=== PATIENT | male | born 1970 | race Caucasian/White ===

== ENCOUNTER 2016-05-13 17:40 | Inpatient (IN) | payer OTHER ==
[~2016-05-13] VITALS: Ht 170.2 cm; Wt 84.9 kg
--- NOTE | 2016-05-13 17:53 | NUR ---
PT TO TRIAGE FOR INCREASED DEPRESSION AND COCAINE AND HERION USE. PT STATES FOR THE LAST WEEK SUICIDE HAS BEEN CROSSING HIS MIND, BUT HAS NO PLANS. STATES HE HAS USED HEROIN AND COCAINE TODAY. PT STATES HIS ANXIETY HAS BEEN OUT OF CONTROL. PT STATES HE STOPPED WELLBUTRIN 2 WEEK PRIOR, STATES HE WAS TAKING IT FOR DEPRESSION
--- NOTE | 2016-05-13 18:02 | ED PSYCHIATRIC COMPLAINT ---
History of Present Illness General Chief Complaint: Psychiatric Related Complaint Stated Complaint: ?+SI/DEPRESSION Source: patient Exam Limitations: no limitations Vital Signs & Intake/Output Vital Signs & Intake/Output Vital Signs Date Time Temp Pulse Resp B/P Pulse O2 O2 Flow FiO2 Ox Delivery Rate 05/14 0834 64 131/62 05/14 0834 96.8 64 20 131/62 96 Room Air 05/14 0726 96.0 50 18 112/58 98 Room Air 05/14 0644 95.8 47 20 100/50 96 Room Air 05/13 2221 48 05/13 2131 96.8 48 18 102/72 98 Room Air 05/13 2035 Room Air 05/13 1749 98.2 77 16 157/100 98 Room Air Room Air ED Intake and Output 05/14 0000 05/13 1200 Intake Total 250 Output Total Balance 250 Intake, Oral 250 Patient 180 lb Weight Allergies Coded Allergies: Penicillins (Severe, ANAPHYLAXIS 05/13/16) Triage Note: PT TO TRIAGE FOR INCREASED DEPRESSION AND COCAINE AND HERION USE. PT STATES FOR THE LAST WEEK SUICIDE HAS BEEN CROSSING HIS MIND, BUT HAS NO PLANS. STATES HE HAS USED HEROIN AND COCAINE TODAY. PT STATES HIS ANXIETY HAS BEEN OUT OF CONTROL. PT STATES HE STOPPED WELLBUTRIN 2 WEEK PRIOR, STATES HE WAS TAKING IT FOR DEPRESSION Triage Nurses Notes Reviewed? yes Onset: Abrupt Duration: day(s): Timing: recent history HPI: 05/13/16 6:37 pm 46-year-old male presents to the emergency department for depression and drug dependency. The patient states that he has a history of depression. He takes Wellbutrin. He also has a history of opiate dependency. He is to be taking Suboxone but he stopped it has been using cocaine and opiates again. The onset of the symptoms have been abrupt, the duration has been weeks, the severity is significant; as his symptoms required him to come to the emergency department for care. (RATNA ROSS DO) Reconcile Medications Buprenorphine HCl/Naloxone HCl (Suboxone 8 MG-2 MG Sl Film) 8 MG-2 MG FILM 2.5 STR SL DAILY MENTAL HEALTH (Reported) Bupropion HCl (Bupropion XL) 150 MG TAB.ER.24H 1 TAB PO DAILY MENTAL HEALTH ( Reported) Bupropion HCl (Bupropion XL) 300 MG TAB.ER.24H 1 TAB PO DAILY MENTAL HEALTH ( Reported) Gabapentin 300 MG CAPSULE 1 CAP PO 4 TIMES/DAY ANXIETY/NERVE PAIN (Reported) (TRAN TAYLOR,GUY) Past History Travel History Traveled to [place] past 21 day No Medical History Any Pertinent Medical History? see below for history Neurological: NONE EENT: NONE Cardiovascular: NONE Respiratory: NONE Gastrointestinal: NONE Hepatic: NONE Renal: nephrolithiasis Musculoskeletal: NONE Psychiatric: depression, opioid dependence, substance abuse Endocrine: NONE Blood Disorders: NONE Cancer(s): NONE KNIFE CUTTER/Reproductive: NONE Surgical History Surgical History: non-contributory Psychosocial History What is your primary language Ugandan Tobacco Use: Current Daily Use Daily Tobacco Use Amount/Type: => 5 Cigarettes daily ETOH Use: denies use Illicit Drug Use: cocaine, OPIATES Family History Hx Contributory? No (RATNA ROSS DO) Review of Systems Review of Systems Constitutional: Denies: fever. EENTM: Denies: visual changes. Respiratory: Denies: short of breath. Cardiovascular: Denies: chest pain. GI: Denies: abdominal pain. Genitourinary: Reports: no symptoms. Musculoskeletal: Reports: no symptoms. Skin: Reports: no symptoms. Neurological/Psychological: Reports: depressed. Hematologic/Endocrine: Denies: bruising, bleeding. (RATNA ROSS DO) Physical Exam Physical Exam General Appearance: well developed/nourished, alert, awake, anxious, mild distress Head: atraumatic, normal appearance Eyes: Bilateral: normal appearance, PERRL, EOMI. Ears, Nose, Throat: normal pharynx, normal ENT inspection Neck: normal inspection, supple Respiratory: normal breath sounds, chest non-tender, no respiratory distress Cardiovascular: regular rate/rhythm Gastrointestinal: non-tender Extremities: normal range of motion Neurological/Psychiatric: no motor/sensory deficits, awake, alert Appearance/Memory/Insight: appropriate appearance Behavoir/Eye Contact/Speech: cooperative Thoughts/Hallucinations: no apparent hallucination Skin: normal color SAD PERSONS SAD PERSONS Response Value Male Sex? yes 1 Age <19 or >45 years? yes 1 Depression/Hopelessness? yes 2 Previous Attempts/Psych Care yes 1 Excessive Ethanol/Drug Use? yes 1 Single//? yes 1 Social Support? has no support 1 Total 8 SAD PERSONS Done? yes (RATNA ROSS DO) Progress Differential Diagnosis: drug intoxication, drug overdose, drug withdrawal ( depression) Plan of Care: Patient for crisis evaluation. Initial ED EKG: pending (RATNA ROSS DO) Hand-Off Endorsed To: YOVANI JOSEPH MD Endorsed Time: 0700 Pending: other (psych hospitalization vs reeva) (GUY MAYFIELD MD) Departure Departure Disposition: STILL A PATIENT Condition: Stable Comments 05/13/16 7 pm Patient to be signed out to Dr. Mayfield at 7 PM. He is pending crisis disposition. (RATNA ROSS DO) Departure Departure Forms: General Discharge Information (GUY MAYFIELD MD) Departure Time of Disposition: 924 Clinical Impression Primary Impression: Depression Secondary Impressions: Cocaine abuse, Opiate abuse, continuous, Suicidal ideation Psych Admission Note Psychiatric Admission: I have seen and evaluated RATNA ANDRADE. I have also reviewed all the pertinent lab results and diagnostic results. RATNA ANDRADE will be admitted to our inpatient Psychiatric unit for treatment and care. (YOVANI JOSEPH MD) Critical Care Note Critical Care Note Critical Care Time: 30-74 min (RATNA ROSS DO)
--- NOTE | 2016-05-13 18:15 | NUR ---
PT WENT TO CAR ACCOMPANIED BY 2 SECURITY GUARDS TO PUT SURESH IN CAR.
--- NOTE | 2016-05-13 18:46 | NUR ---
SECURITY AT BEDSIDE FOR WANDING AND PT CHANGED INTO BLUE SCRUBS
--- NOTE | 2016-05-13 18:55 | NUR ---
URINE TRIO SENT TO LAB
--- NOTE | 2016-05-13 19:00 | NUR ---
BOX LUNCH GIVEN TO PT
--- NOTE | 2016-05-13 19:05 | NUR ---
LABS SENT (SST, L[facility])
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
[2016-05-13 19:51] LABS: ABSOLUTE BASOPHIL COUNT 0 /CUMM (0.0-0.2); ABSOLUTE EOSINOPHIL COUNT 0.1 /CUMM (0.0-0.7); ABSOLUTE GRANULOCYTE CT 5.8 /CUMM (1.4-6.5); ABSOLUTE LYMPH COUNT 1.4 /CUMM (1.2-3.4); ABSOLUTE MONOCYTE COUNT 0.6 /CUMM (0.10-0.60); BASOPHIL % 0.4 % (0.0-2.0); GRANULOCYTE % 72.8 % (42.2-75.2); MEAN CORPUSCULAR HGB 29.9 PG (27.0-31.0); MEAN CORPUSCULAR HGB CONC 33.3 G/DL (33.0-37.0); MEAN CORPUSCULAR VOLUME 89.9 FL (80.0-94.0); MEAN PLATELET VOLUME 8.1 FL (7.4-10.4); PLATELET COUNT 202 /CUMM (130-400); RBC DISTRIBUTION WIDTH 12.8 % (11.5-14.5); RED BLOOD CELL CT 5.01 /CUMM (4.70-6.10); WHITE BLOOD CELL COUNT 7.9 /CUMM (4.8-10.8)
--- NOTE | 2016-05-13 20:34 | NUR ---
CRISIS AT BEDSIDE FOR EVAL.
[2016-05-13] MEDS ORDERED: BUPROPION XL150 MG PO (20:55)
[2016-05-13] MEDS ORDERED: SUBOXONE 8 MG-1 EACH SL (20:55)
[2016-05-13] MEDS ORDERED: GABAPENTIN300 M2 PO (20:56)
[2016-05-13] MEDS ORDERED: BUPROPION XL300 M1 PO (20:57)
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
--- NOTE | 2016-05-13 21:37 | NUR ---
PT RESTING COMFORTABLY IN ROOM 7 WATCHING TV, SITTER AT DOOR. PT CALM AND COOPERATIVE.
--- NOTE | 2016-05-13 22:21 | NUR ---
PT MEDICATED WITH GABAPENTIN 300MG PO. HELD CLONIDINE 0.1MG DUE TO PT'S PULSE BEING OUT OF RANGE AT 48 BPM
--- NOTE | 2016-05-13 22:33 | ED PSY CRISIS COLLATERAL NOTE ---
Collateral Note Collateral Note Family/Inform/Chitra Contacts: Patient's girlfriend Lanette Wen contacted at [phone]. Lanette reports she is aware of patient's substance use history and recent relapse. Pt. is concerned for patient's safety as he has sent text messages where he indicates he wants to commit suicide. Pt.'s girlfriend works an alternate schedule to pt from 11 p - 10 a and believes pt. has been avoiding her. Lanette asserts pt. is severely depressed and has been highly impulsive over the past month w/ substance use. Lanette reports patient was incarcerated from January 2015 to September 2015 and is currently on parole. Lanette believes pt. may be feeling hopeless due to risk of violation of parole. Lanette reports patient has a desire to achieve sobriety and has made efforts to do so by engaging with the [employer] and going on suboxone. Lanette is supportive of patient and would like to kept aware of his treatment.
--- NOTE | 2016-05-13 22:35 | NUR ---
Crisis consultation completed - evaluation reviewed with on-call psychiatrist Dr. Tejada and Dr. Pitts. Patient will be held overnight and reassessed by crisis in the AM.
--- NOTE | 2016-05-13 22:38 | NUR ---
PT REQUESTING IF HIS WELLBUTRIN 300MG COULD BE RESTARTED. PT REPORTS TAKING IT QHS IT MAKES HIM TIRED. PT ALSO INQUIRED IF WE HAD METHADONE FOR OPIOID W/D SYMPTOMS.
--- NOTE | 2016-05-13 23:44 | NUR ---
PATIENT RESTING COMFORTABLY ON STRETCHER W/ REGULAR RESPIRATIONS NOTED. SITTER REMAINS W/ PATIENT. CALM.
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
--- NOTE | 2016-05-14 01:24 | NUR ---
PATIENT CONTINUES TO SLEEP AT THIS TIME W/ REGULAR RESPIRATIONS NOTED. SITTER REMAINS W/ PATIENT. LIGHTS DIMMED.
--- NOTE | 2016-05-14 01:54 | NUR ---
PT AMBULATED TO BATHROOM, STEADY GAIT NOTED. PT BACK TO STRETCHER, RESTING COMFORTABLY, SITTER ELEAZAR IN PLACE.
--- NOTE | 2016-05-14 03:14 | NUR ---
PATIENT CONTINUES TO SLEEP AT THIS TIME W/ REGULAR RESPIRATIONS NOTED. SITTER REMAINS W/ PATIENT.
--- NOTE | 2016-05-14 05:31 | NUR ---
PATIENT CONTINUES TO SLEEP AT THIS TIME, LIGHTS DIMMED. NOTED W/ REGULAR RESPIRATIONS AND SELF TURNING/ REPOSITIONING. SITTER REMAINS W/ PATIENT.
--- NOTE | 2016-05-14 07:16 | NUR ---
PT MEDICATED WITH 300MG NEURONTIN PER EMAR
--- NOTE | 2016-05-14 07:42 | NUR ---
ASSUMED CARE OF THIS PATIENT, REPORT RECEIVED FROM SALINAS HIGGINS PT OFFERS NO COMPLAINTS AT THIS TIME AWAITS CRISIS EVAL SITTER REMAINS AT BEDSIDE WILL CONTINUE TO MONITOR
--- NOTE | 2016-05-14 08:26 | NUR ---
Crisis attempted to talk to pt. Pt states he can't talk right now because he is too sick from heroin withdrawl. Tom Diez made aware. Chary explained to him that if he wants help he needs to talk to crisis. Pt says in a little while. Chary informing ED MD of pt's withdrawl sx.
--- NOTE | 2016-05-14 08:35 | NUR ---
PT TURNED AWAY GRANITE POLISHER MACHINE STATING "I DON'T FEEL WELL". WHEN QUESTIONED FURTHER DENIES N/V, COMPLAINS OF "HEROIN WITHDRAWAL" BUT DOESN'T OTHERWISE CLARIFY S/S. ALSO COMPLAINS OF GENERALIZED PAIN 08/11. DISCUSSED SAME WITH DR JOSEPH, PT MEDICATED WITH CLONIDINE AND MOTRIN PER ORDERS.
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
--- NOTE | 2016-05-14 10:15 | SOCIAL WORKER PROG NOTE PSYCH ---
Social Work Progress Note Progress Note Pt is declining to participate in social history because he expresses that he is took sick from heroin withdrawl to talk.
--- NOTE | 2016-05-14 11:21 | NUR ---
PER SULAIMAN FROM CRISIS PT IS TO BE ADMITTED TO CPS AND CPS WILL BE READY TO TAKE HIM AROUND 13:30.
--- NOTE | 2016-05-14 11:30 | NUR ---
PT AMBULATORY FROM [facility] RM 7 TO ER RM 13 WITH SITTER AT THIS TIME.
--- NOTE | 2016-05-14 13:59 | NUR ---
PT MEDICATED WITH NEURONTIN AND METHADONE PER ORDERS. PT STATES "THAT DOSE ISN'T GOING TO DO ANYTHING". SITTER REMAINS AT DOOR AWAITING DIRECTION FROM OUTDOOR GUIDE REGARDING CALLING REPORT TO CPS.
--- NOTE | 2016-05-14 14:48 | NUR ---
PER AL IN CRISIS CPS WILL CALL ER FOR RN REPORT WHEN THEY ARE READY.
--- NOTE | 2016-05-14 16:15 | NUR ---
AWAKENED FOR VS, C/O FEELING"SICK", REQUESTING MORE METHADONE, STATES 5 MG IS NOT ENOUGH.
[2016-05-14 17:43] VITALS: BP 121/77
--- NOTE | 2016-05-14 19:33 | NUR ---
PT ADMITTED TO CPS FOR DEPRESSION WITH SI AND OPIATE DETOX. PT PRESENTED DEPRESSED, ANXIOUS, AND IRRITABLE. AFFECT CONSTRICTED. PRIMARY CONCERN WAS "I'M NOT FEELING WELL." "I NEED METHADONE TO DETOX." PT DENIED ACTIVE SI DURING INTERVIEW BUT SAID HE DID HAVE THOUGHTS THAT "I DON'T WANT TO LIVE." PT DENIED PLAN OR INTENT TO HARM SELF WHILE IN HOSPITAL. HE ALSO AGREED TO TELL STAFF IF/WHEN THOUGHTS OF SI/SELF HARM OCCUR. GENERAL PAIN "ALL OVER" FROM OPIATE WITHDRAWAL "4 OR 5." DR JENKINS AWARE OF PT STATUS, INCLUDING BRADYCARDIA WHICH WAS 66 UPON ARRIVAL, BUT 42 ON EKG. PT HEART RATE HAS BEEN RUNNING SLOW SINCE HE WAS WAS IN ER. NO CHEST PAIN OR PALPITATIONS. NO OTHER SOMATIC C/O. METHADONE INITIALLY ORDERED BY DR BRAVO WAS DCD BY DR JENKINS. PT DENIED HI AND ALL HALLUCINATIONS. THOUGHT PROCESS CLEAR AND LOGICAL. INCONSISTENCIES IN HX MAY BE DUE TO PT WANTING TO GET THROUGH ADMISSION PROCESS SOON POSSIBLE BECAUSE, "I JUST WANT TO GO TO SLEEP." PT DENIED BEING ON PAROLE AND ALSO DENIED HX OF PHYSICAL ABUSE WHICH WERE REPORTED ON CRISIS REPORT.
[2016-05-14 19:43] VITALS: BP 148/74
[2016-05-14] MEDS ORDERED: WELLBUTRIN XL300 M2 PO (22:23)
--- NOTE | 2016-05-15 05:35 | NUR ---
PT ANGRY AND UPSET AT 2229 REGARDING LACK OF METHADONE 5. SECURITY CALLED DUE TO ANGER AND VULGARITY. DOCTOR CALLED AND GAVE 5MG METHADONE DOSE. PT RECEIVED ALONG WITH 0.1 CLONIDINE. PT CALMER AFTERWARDS, SLEPT.
[2016-05-15 08:56] VITALS: BP 164/95
--- NOTE | 2016-05-15 09:51 | SOCIAL WORKER PROG NOTE PSYCH ---
Social Work Progress Note Progress Note SW attempted to meet with the patient to complete the SW History, however the patient declined, stating that "he felt horrible." SW will attempt again later this afternoon. Case discussed with SALINAS Shukla, who assisted in trying to get the patient out of bed.
--- NOTE | 2016-05-15 12:21 | CPS MD/APRN INITIAL ASSE PSYCH ---
Psychiatric Admission Map And Chart Mounter's Note Reviewed: Yes Patient Seen and Examined: Yes Identifying Information: 46yoM with hx of OUD, MDD Chief Complaint: "not doing good" Reaction to Hospitalization: positive, decreased SI History of Present Illness Onset of Illness: three weeks ago Circumstances Leading to Admission: increasing substance use Problem(s) Justifying Need for Admission: +SI and escalating drug use Other HPI: Pt notes that he was doing well until few weeks. He could not specify the trigger but noted that he was having increasing cravings to use heroin. He relapsed on at first one bundle which escallated to three bundles of heroin daily. In that time, noted worsening mood and thoughts of harm to self via overdose. He denies SI in the past. On exam this morning, denies SI. Denies manic, psychotic or TRS. Notes poor sleep since relapse. Started on methadone 5mg TID in ER. He attempted to cut down on use with suboxone. Wants to do suboxone maintenence as an outpatient. Past Psychiatric History Past Diagnosis(es)- if any: MDD OUD PSD Past Precipitating Factors- if any: worsening substance use - Include inpatient and outpatient treatment Treatment History: Seen by outpatient provider for PSD and MDD Multiple failed med trials (compliance seems to be issue) History of Suicide Attempts or Gestures Pt denies Substance Abuse History: Heroin use for the past 10-15 years Was on suboxone with longest period of soberity Relapse three weeks ago Allergies: Coded Allergies: Penicillins (Severe, ANAPHYLAXIS 05/13/16) Home Med List: Suboxone (off the street) - Include any medical condition(s) that may - impact the patient's recovery/remission Past Medical History: Pt denies ongoing medical issues Past History Medical History Neurological: NONE EENT: NONE Cardiovascular: NONE Respiratory: NONE Gastrointestinal: NONE Hepatic: NONE Renal: nephrolithiasis Musculoskeletal: NONE Psychiatric: anxiety, depression, IV drug abuse, opioid dependence, substance abuse Endocrine: NONE Blood Disorders: NONE Cancer(s): NONE PRODUCT DEVELOPMENT SPECIALIST/Reproductive: NONE History of MRSA: No History of VRE: No History of CDIFF: No Isolation History: Standard Surgical History Surgical History: hernia Repair Psychiatric Family/Social Hx Family History Psychiatric Illness: Multiple family members with depression, anxiety, susbtance use Substance Use: See above Suicides: Denied Social History Living Situation: Currently living with gf Significant Relationships (family/friends): GF, supportive Education: HS 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 - #1 Recognizing dangerous situations. - #2 Coping Skills. - #3 Basic information about quitting. Status of Tobacco Cessation Counseling: #1, #2 AND #3 Completed Cessation Med Status: Nicotine Patch Ordered Alcohol Screening - ETOH screen POS if BAL >=80 or Audit-C>= M4/F3 Audit-C Score from Diag Assess: 0 Blood Alcohol Level: Laboratory Tests 05/13 1944 Toxicology Serum Alcohol (<10 MG/DL) < 10.0 Alcohol Use Screening Results: Neg per Audit C &/or BAL - If ETOH counseling indicated - the following topics are required. - #1 Express concern about the patient's - drinking at unhealthy levels, include informing - of national norms for moderate drinking: - men <= 14 drinks/week, max 4 drinks/occasion - women <= 7 drinks/week, max 3 drinks/occasion - #2 Providing feedback, including linking alcohol to - negative physical effects (liver injury, hypertension) - negative emotional effects (relationship problems and - depression) - negative occupational consequences (reduced work - performance) - #3 Advising the patient to abstain from alcohol or - to drink below national norms for moderate drinking - (as listed above). Status of ETOH Use Counseling: N/A B/C NO ETOH Use Metabolic Screening - Screen if on a Neuroleptic Medication - Metabolic screening should include: - Blood Pressure, BMI, Glucose or Hgb A1c, & a - Lipid profile from within the past 365 days. Metabolic Screening () Not Applicable, patient not on a neuroleptic. OR () Patient on a neuroleptic(s) . Enter below results for Glucose or Hemoglobin A1C, and lipid panel if obtained during the last 365 days. Blood Pressure: 164/95 Laboratory Results (If applicable): Laboratory Tests 05/13 1850 Chemistry Sodium (137 - 145 mmol/L) 139 Potassium (3.5 - 5.1 mmol/L) 4.1 Chloride (98 - 107 mmol/L) 101 Carbon Dioxide (22 - 30 mmol/L) 29 Anion Gap (5 - 16) 9 BUN (9 - 20 mg/dL) 15 Creatinine (0.7 - 1.2 mg/dL) 1.0 Estimated GFR (>60 ml/min) > 60 BUN/Creatinine Ratio (7 - 25 %) 15.0 Glucose (65 - 99 mg/dL) 97 Calcium (8.4 - 10.2 mg/dL) 9.5 Total Bilirubin (0.2 - 1.3 mg/dL) 0.4 AST (17 - 59 U/L) 29 ALT (21 - 72 U/L) 47 Alkaline Phosphatase (< 127 U/L) 58 Total Protein (6.3 - 8.2 g/dL) 7.1 Albumin (3.5 - 5.0 g/dL) 4.4 Globulin (1.9 - 4.2 gm/dL) 2.7 Albumin/Globulin Ratio (1.1 - 2.2 %) 1.6 Hematology CBC w Diff NO MAN DIFF REQ WBC (4.8 - 10.8 /CUMM) 7.9 RBC (4.70 - 6.10 /CUMM) 5.01 Hgb (14.0 - 18.0 G/DL) 15.0 Hct (42 - 52 %) 45.0 MCV (80.0 - 94.0 FL) 89.9 MCH (27.0 - 31.0 PG) 29.9 RDW (11.5 - 14.5 %) 12.8 Plt Count (130 - 400 /CUMM) 202 MPV (7.4 - 10.4 FL) 8.1 Gran % (42.2 - 75.2 %) 72.8 Lymphocytes % (20.5 - 51.1 %) 17.7 L Monocytes % (1.7 - 9.3 %) 8.1 Eosinophils % (0 - 5 %) 1.0 Basophils % (0.0 - 2.0 %) 0.4 Absolute Granulocytes (1.4 - 6.5 /CUMM) 5.8 Absolute Lymphocytes (1.2 - 3.4 /CUMM) 1.4 Absolute Monocytes (0.10 - 0.60 /CUMM) 0.6 Absolute Eosinophils (0.0 - 0.7 /CUMM) 0.1 Absolute Basophils (0.0 - 0.2 /CUMM) 0 PUBS MCHC (33.0 - 37.0 G/DL) 33.3 Toxicology Urine Opiates Screen (>2000 NG/ML) > 4000.00 H Methadone Screen (>300 NG/ML) < 40 Barbiturate Screen (>200 NG/ML) < 60 Ur Phencyclidine Scrn (>25 NG/ML) < 6.00 Amphetamines Screen (>1000 NG/ML) < 100 U Benzodiazepines Scrn (>200 NG/ML) < 85 Urine Cocaine Screen (>300 NG/ML) > 1000 H Urine Cannabis Screen (>50 NG/ML) 24.20 Serum Alcohol (<10 MG/DL) < 10.0 Exam and Plan Mental Status Examination Ambulation Status: walking without difficulty Appearance: slightly dishelved Attitude towards examiner: cooperative but guarded Psychomotor activity: slight psychomotor agitation Behavior: cooperativbe Quality of speech: soft Affect: very irritable Mood: "a little betterm I'm not suicidal anymore" Suicidal Ideation: denied Homicidal Ideation: denied Hallucinations: denied Paranoid/Delusional Material: denied Difficulties with thought organization: none noted Insight: limited Judgment: limited Orientation: a/o x4 Cognition: grossly intact, unable to fully assess as in opiate wd Memory Function: grossly intact Estimate of intellectual functioning: average Assets/Strengths Patient Identified Assets/Strengths: able to communicate, wants to get back on suboxone, wants to have relationship and continue employment Impression/Plan Impression and Plan: Pt with MDD and OUD with recent relapse leading to worsening mood sx. At this time, patient focused on acute opiate wd. Once this has passed, to further assess for mood. Pt may benefit from another trial of SSRI or Wellbutrin as was benefical in the past. To closely montior - Include all active medical diagnosis that require tx DSM 5 Diagnosis(es): Major Depressive Disorder r/o Substance-induced mood disorder Opiate Use Disorder Nicotine Dependence Unspecified anxiety disroder - Initial Tx Plan for Active Psych & Medical Conditions Treatment Plan: - Montior opiate wd - Continue methadone 5mg TID for next day, will taper by 2.5mg intervals - Suportive PRNS in place - Monitor for mood or psychotic sx - Encouarge intergration into the milieu - Factors that would help patient function - in a less restrictive setting. Factors: Escalating substance use
[2016-05-15 12:34] VITALS: BP 129/90
--- NOTE | 2016-05-15 12:43 | NUR ---
PT ISOLATED IN HIS ROOM ALL MORNING. HE WAS OOB FOR VS AND MEDS ONLY. HE REPORTED HE DID NOT FEEL WELL DUE TO WITHDRAWAL. PT DENIED THOUGHTS OF SUICIDE OR SELF HARM. HE MET WITH THE DOCTOR AND WILL HAVE A METHADONE TAPER
--- NOTE | 2016-05-15 13:46 | SOCIAL WORKER PROG NOTE PSYCH ---
Social Work Progress Note Progress Note NOE made another attempt to complete the patients social history, however he again, declined to participate at this time. He stated that he was still not feeling well and he proceeded to go to the dining room to eat lunch. NOE informed him that another social media intern will attempt again tomorrow and that he would need to participate, he verbalized understanding.
--- NOTE | 2016-05-15 14:36 | NUR ---
DR AGRAWAL IS AWARE OF THE EKG SHOWING BRADYCARDIA
[2016-05-15 16:21] VITALS: BP 142/83
--- NOTE | 2016-05-15 16:42 | History & Physical ---
General Information and [facility] MD Statement: I have seen and personally examined RATNA ANDRADE and documented this H&P. The patient is a 46 year old M who presented with a patient stated chief complaint of increased depression and cocaine/heroin abuse x 1 week. Source of Information: patient Exam Limitations: no limitations History of Present Illness: The patient is a 46 yo male with h/o depression and substance abuse who presented on the day of admission in the [place] ED with concern regarding increased depression symptoms with suicidal ideation over 1 week period prior to admission. He also described increased anxiety. Was previously on Wellbutrin and stopped this 2 weeks prior. He had been in Suboxone program, however discontinued and began using cocaine and heroin again due to depression and anxiety. Was admitted directly to [facility]. Denies any chest pain, palpitations, abd pain, etc. Allergies/Medications Allergies: Coded Allergies: Penicillins (Severe, ANAPHYLAXIS 05/13/16) Home Med list Bupropion HCl (Wellbutrin XL) 300 MG TAB.ER.24H 1 TAB PO DAILY MENTAL HEALTH (Reported) Gabapentin 300 MG CAPSULE 1 CAP PO 4 TIMES/DAY ANXIETY/NERVE PAIN (Reported) Compliance With Home Meds: POOR (STOPPED PRIOR TO ADMIT) Past History Travel History Traveled to [facility] past 21 day No Medical History Blood Transfusion Hx: No Neurological: NONE EENT: NONE Cardiovascular: NONE Respiratory: NONE Gastrointestinal: NONE Hepatic: NONE Renal: nephrolithiasis Musculoskeletal: NONE Psychiatric: anxiety, depression, IV drug abuse, opioid dependence, substance abuse Endocrine: NONE Blood Disorders: NONE Cancer(s): NONE 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 Psychosocial History Where do you live? Home Primary Language: Peruvian Smoking Status: Current Everyday Smoker (1 PPD) ETOH Use: denies use Illicit Drug Use: cocaine, OPIATES Review of Systems Review of Systems Constitutional: Reports: malaise, weakness. EENTM: Denies: no symptoms. Cardiovascular: Denies: no symptoms. Respiratory: Denies: no symptoms. GI: Denies: no symptoms. Genitourinary: Denies: no symptoms. Musculoskeletal: Denies: no symptoms. Skin: Denies: no symptoms. Neurological/Psychological: Reports: depressed, emotional problems. Hematologic/Endocrine: Denies: no symptoms. Immunologic/Allergic: Denies: no symptoms. Exam & Diagnostic Data Last 24 Hrs of Vital Signs/I&O Vital Signs Date Time Temp Pulse Resp B/P Pulse O2 O2 Flow FiO2 Ox Delivery Rate 05/15 1621 63 142/83 05/15 1234 72 129/90 05/15 0856 97.5 77 164/95 05/14 2241 97.2 60 18 148/74 05/14 2240 97.2 60 18 148/74 05/14 2238 97.2 60 18 148/74 05/14 1943 97.2 52 148/74 05/14 1743 96.3 66 121/77 Intake & Output 05/15 1600 05/15 0800 05/15 0000 Intake Total Output Total Balance Patient 84.935 kg Weight Physical Exam General Appearance Alert, Oriented X3, Cooperative, No Acute Distress Skin No Rashes, No Breakdown, No Significant Lesion HEENT Atraumatic, PERRLA, EOMI, Mucous Membr. moist/pink Neck Supple, No JVD, No thryomegaly, +2 Carotid Pulse wo Bruit, No LAD Cardiovascular Regular Rate, Normal S1, Normal S2, No Murmurs Lungs Clear to Auscultation, Normal Air Movement Abdomen Normal Bowel Sounds, Soft, No Tenderness, No Hepatospenomegaly, No Masses Neurological Exam Findings: Normal Gait, Normal Speech, Strength at 5/5 X4 Ext, Normal Tone, Sensation Intact, Cranial Nerves 3-12 NL, Reflexes 2+ Cranial Nerves II through XII: INTACT Extremities No Clubbing, No Cyanosis, No Edema, Normal Pulses, No Tenderness/ Swelling Vascular Normal Pulses, Pulses Symmetrical Last 24 Hrs of Labs/Donny: Laboratory Tests 05/13/161944: Anion Gap 9, Estimated GFR > 60, BUN/Creatinine Ratio 15.0, Glucose 97, Calcium 9.5, Total Bilirubin 0.4, AST 29, ALT 47, Alkaline Phosphatase 58, Total Protein 7.1, Albumin 4.4, Globulin 2.7, Albumin/Globulin Ratio 1.6, CBC w Diff NO MAN DIFF REQ, RBC 5.01, MCV 89.9, MCH 29.9, RDW 12.8, MPV 8.1, Gran % 72.8, Lymphocytes % 17.7 L, Monocytes % 8.1, Eosinophils % 1.0, Basophils % 0.4, Absolute Granulocytes 5.8, Absolute Lymphocytes 1.4, Absolute Monocytes 0.6, Absolute Eosinophils 0.1, Absolute Basophils 0, PUBS MCHC 33.3, Serum Alcohol < 10.0 05/13/16 1850: Urine Opiates Screen > 4000.00 H, Methadone Screen < 40, Barbiturate Screen < 60, Ur Phencyclidine Scrn < 6.00, Amphetamines Screen < 100, U Benzodiazepines Scrn < 85, Urine Cocaine Screen > 1000 H, Urine Cannabis Screen 24.20 Assessment/Plan Assessment: #Depression/Anxiety/Suicidal Ideation- patient presents in ED with above complaints and concerns. Plan: Admit to [facility]- Rx as per psychiatry. #Opioid Dependence/Cocaine Dependence- patient previously on Suboxone. Now has been using. Plan: Patient was initially given Methadone, however now off. Hydroxyzine/Zofran/Clonidine/Loperamide/Ibuprofen/Dicyclomine/Gabapentin ordered. Monitor withdrawal. As Ranked By This Provider Problem List: 1. Depression 2. Opiate abuse, continuous 3. Cocaine abuse 4. Suicidal ideation Miscellaneous Miscellaneous Documentation Attending Case Discussed With: YVETTE BRAVO MD Primary Care Physician: PATIENT HAS NO PRIMARY CARE DR Patient sees these Specialists NONE Level of Patient Care: BARBARA Spangler MD Review Statement Attending Statement Attending Statement: examined this patient, reviewed EMR data (avail), discussed with nursing, amended to note Attending Assessment/Plan: The patient was seen today.
[2016-05-15 19:45] VITALS: BP 100/72
--- NOTE | 2016-05-15 21:32 | NUR ---
PT IS ISOLATIVE AND WITHDRAWN, REMAINING IN BED FOR MAJORITY OF EVENING. REPORTS NOT FEELING WELL AND "NOT IN THE MOOD TO SOCIALIZE." AT ONE POINT IN THE EVENING, PT HAD VERY LOUD PHONE CALL. LATER A VISITOR CAME TOWARDS END OF VISITING HOURS AND HE WENT DIRECTLY BACK TO BED AFTER SHE LEFT. NO SI REPORTED. PT HAS AN ANXIOUS MOOD AND IRRITABLE AFFECT.
[2016-05-16 08:41] VITALS: BP 155/94
--- NOTE | 2016-05-16 09:44 | CP SOUTH PROGRESS NOTE PSYCH ---
Psych (Inpt) Progress Note Progress Note Include the following elements, when applicable: Involvement in the active treatment of the patient with behavioral observations of the patient and the patient's response to the treatment. Review of the ongoing treatment process in the context of the treatment plan. Indication of how multi-disciplinary staff members are carrying out the treatment plan. Plans for future interventions and recommendations for revision of the treatment plan. Liaison with other physicians/providers. Progress Note: Pt notes that less wd sx with continued methadone. He denies SI or HI. Feels better from a mood standpoint but still with marked irritability. Current Medications Sig/Martín Start time Last Medication Dose Route Stop Time Status Admin Clonidine 0.1 MG FOUR TIMES A DAY PRN 05/14 1814 AC 05/14 PO 2237 Dicyclomine HCl 20 MG Q6P PRN 05/14 1944 AC 05/15 PO 210 Gabapentin 300 MG 4 TIMES/DAY 05/14 1817 AC 05/15 PO 210 Hydroxyzine HCl 50 MG 4 TIMES/DAY PRN 05/14 1999 AC 05/14 PO 223 Ibuprofen 600 MG Q6P PRN 05/14 1944 AC 05/15 PO 1906 Loperamide HCl 2 MG Q6P PRN 05/14 1944 AC PO Methadone HCl 2.5 MG TID 05/17 1200 UNVr PO Methadone HCl 5 MG TID 05/15 1999 r 05/15 PO 05/17 1100 2004 Methadone HCl 5 MG ONCE ONE 05/15 1130 DC 05/15 PO 05/15 1131 1225 Ondansetron HCl 4 MG Q6P PRN 05/14 1944 AC 05/15 PO 2107 Trazodone HCl 50 MG AT BEDTIME NEED.. 05/14 1814 AC PO Laboratory Tests 05/13 1850 Chemistry Sodium (137 - 145 mmol/L) 139 Potassium (3.5 - 5.1 mmol/L) 4.1 Chloride (98 - 107 mmol/L) 101 Carbon Dioxide (22 - 30 mmol/L) 29 Anion Gap (5 - 16) 9 BUN (9 - 20 mg/dL) 15 Creatinine (0.7 - 1.2 mg/dL) 1.0 Estimated GFR (>60 ml/min) > 60 BUN/Creatinine Ratio (7 - 25 %) 15.0 Glucose (65 - 99 mg/dL) 97 Calcium (8.4 - 10.2 mg/dL) 9.5 Total Bilirubin (0.2 - 1.3 mg/dL) 0.4 AST (17 - 59 U/L) 29 ALT (21 - 72 U/L) 47 Alkaline Phosphatase (< 127 U/L) 58 Total Protein (6.3 - 8.2 g/dL) 7.1 Albumin (3.5 - 5.0 g/dL) 4.4 Globulin (1.9 - 4.2 gm/dL) 2.7 Albumin/Globulin Ratio (1.1 - 2.2 %) 1.6 Hematology CBC w Diff NO MAN DIFF REQ WBC (4.8 - 10.8 /CUMM) 7.9 RBC (4.70 - 6.10 /CUMM) 5.01 Hgb (14.0 - 18.0 G/DL) 15.0 Hct (42 - 52 %) 45.0 MCV (80.0 - 94.0 FL) 89.9 MCH (27.0 - 31.0 PG) 29.9 RDW (11.5 - 14.5 %) 12.8 Plt Count (130 - 400 /CUMM) 202 MPV (7.4 - 10.4 FL) 8.1 Gran % (42.2 - 75.2 %) 72.8 Lymphocytes % (20.5 - 51.1 %) 17.7 L Monocytes % (1.7 - 9.3 %) 8.1 Eosinophils % (0 - 5 %) 1.0 Basophils % (0.0 - 2.0 %) 0.4 Absolute Granulocytes (1.4 - 6.5 /CUMM) 5.8 Absolute Lymphocytes (1.2 - 3.4 /CUMM) 1.4 Absolute Monocytes (0.10 - 0.60 /CUMM) 0.6 Absolute Eosinophils (0.0 - 0.7 /CUMM) 0.1 Absolute Basophils (0.0 - 0.2 /CUMM) 0 PUBS MCHC (33.0 - 37.0 G/DL) 33.3 Toxicology Urine Opiates Screen (>2000 NG/ML) > 4000.00 H Methadone Screen (>300 NG/ML) < 40 Barbiturate Screen (>200 NG/ML) < 60 Ur Phencyclidine Scrn (>25 NG/ML) < 6.00 Amphetamines Screen (>1000 NG/ML) < 100 U Benzodiazepines Scrn (>200 NG/ML) < 85 Urine Cocaine Screen (>300 NG/ML) > 1000 H Urine Cannabis Screen (>50 NG/ML) 24.20 Serum Alcohol (<10 MG/DL) < 10.0 Vital Signs Date Time Temp Pulse Resp B/P Pulse O2 O2 Flow FiO2 Ox Delivery Rate 05/16 0841 96.2 71 155/94 05/15 1945 96.3 82 100/72 05/15 1621 63 142/83 05/15 1234 72 129/90 MSE Appears as stated age. Cooperative behavior, good, no eye contact. Nl speech rate and prosody. No psychomotor retardation or agitation. Mood OK Affect very irritable, constricted, appropriate, non-liable. Linear and goal directed thought process. Denies SI or HI. Does not appear to be responding to internal stimuli. Denies AVHs, paranoia, or delusions. I/J: limited A/P: Pt with unspecified mood disorder and OUD who presented with SI now resolved and currently tolerating methadone taper. - Continue methadone 5mg TID until 02 AM dose, for midday dose to start 2.5mg TID (spoke with pharmacy, tablets can be broken in two). - Continue supportive PRNs for wd
--- NOTE | 2016-05-16 14:43 | NUR ---
Pt is A&O X 3, compliant with medication but does not like to attend group therapies/ activities. Patient isolates in his room mostly on bed rest, minimal interaction with other peers and staff members, Pt is focusing in his discharge following his 3-day-paper, very skeptical/ refusing some of his methadone in other to be clean for Suboxone prescription. pt demonstrates some determination for positive lifestyle change reporting to the med nurse that most of his close friends have passes due to drug addiction and does not want to suffer this fate. pt denies thought of self-harm and to someone else.
[2016-05-16 16:27] VITALS: BP 124/79
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
[2016-05-16 19:46] VITALS: BP 122/76
--- NOTE | 2016-05-16 20:17 | NUR ---
PT IS IN ROOM MOSTLY, SLEEPING, OUT OF MILIEU. 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 PT MOOD IS STABLE, AFFECT IS EUTHYMIC, COMMUNICATION IS NORMAL, AND APPETITE IS NORMAL. PT DENIES SI AT THIS TIME.
--- NOTE | 2016-05-17 06:45 | NUR ---
PATIENT UP TO BATHROOM A COUPLE OF TIMES, OTHERWISE APPEARED TO SLEEP MOST OF NIGHT.
[2016-05-17 08:01] VITALS: BP 128/80
--- NOTE | 2016-05-17 10:29 | CP SOUTH PROGRESS NOTE PSYCH ---
Psych (Inpt) Progress Note Progress Note Progress Note: I discussed this patient's progress to date, current mental status, treatment process in the context of the treatment plan, and discharge planning with staff/ team in the daily morning inpatient team meeting. I also met with the patient myself in individual session. SUBJECTIVE: "I'm not suicidal. I used that ploy to get in. I have accomplished my goal of getting off heroin." OBJECTIVE: Current Medications Sig/Martín Start time Last Medication Dose Route Stop Time Status Admin Clonidine 0.1 MG FOUR TIMES A DAY PRN 05/14 1814 AC 05/14 PO 223 Dicyclomine HCl 20 MG Q6P PRN 05/14 1944 AC 05/15 PO 210 Diphenhydramine HCl 25 MG AT BEDTIME NEED.. 05/16 2244 AC 05/16 PO 224 Gabapentin 300 MG 4 TIMES/DAY 05/14 1817 AC 05/16 PO 2030 Hydroxyzine HCl 50 MG 4 TIMES/DAY PRN 05/14 1999 AC 05/16 PO 203 Ibuprofen 600 MG .STK-MED ONE 05/16 1842 DC PO 05/16 1843 Ibuprofen 600 MG Q6P PRN 05/14 1944 AC 05/16 PO 1848 Loperamide HCl 2 MG Q6P PRN 05/14 194 AC PO Methadone HCl 2.5 MG TID 05/17 1200 AC PO Methadone HCl 5 MG TID 05/15 1999 AC 05/16 PO 05/17 1100 1030 Nicotine 2 MG Q2P PRN 05/17 1015 AC PO Ondansetron HCl 4 MG Q6P PRN 05/14 1944 AC 05/15 PO 210 Trazodone HCl 50 MG AT BEDTIME NEED.. 05/14 181 AC PO Vital Signs Date Time Temp Pulse Resp B/P Pulse O2 O2 Flow FiO2 Ox Delivery Rate 05/17 0801 97.0 75 128/80 05/16 1945 97.0 65 122/76 05/16 1627 53 124/79 ASSESSMENT: The patient states he feels safe and ready for discharge. States that he is not suicidal, and lied about that in the emergency room, in the hope that he would be admitted. He was hoping to get help to stop taking heroin. He reports that his employer called him, to tell him that he if he did not come to work today by 2:00 PM, that he would be fired. Patient further states that he is feeling well, is prescribed Suboxone at the [facility]. He intends to start taking Suboxone immediately upon return to home this morning. He has intentionally not taken methadone since yesterday morning. We discussed the possible effects of restarting Suboxone, including the effects of the naloxone given his recent methadone use. Patient verbalizes understanding. States that he has a walk-in appointment scheduled for today at the [facility], which he intends to attend prior to going to work this afternoon. "Once I take my Suboxone, I'll be okay. I'm not having any cravings." Depression:0/10; Anxiety:3/10 (with 10 the worst.) Denies suicidal ideation, homicidal ideation, auditory hallucinations, visual hallucinations, paranoid ideation. States that he sleeps well at night, after taking Benadryl. States his appetite is good. Speech is well articulated, goal-directed, average in rate, volume and tone. The patient understands the risks/benefits/side effects of the medication and is agreeable to continue taking them. PLAN: Discharged today. Patient will follow-up at [facility]. Continue with current management as patient is improving. Continue to provide support and encouragement.
[2016-05-17] MEDS ORDERED: NICORELIEF2 MG PO (10:35)
--- NOTE | 2016-05-17 10:40 | DISCHARGE SUMMARY REPORT-PSYCH ---
Visit Information Visit Dates/Diagnosis' Admission Date: 05/14/16 Discharge Date: 05/17/16 Reason for Admission: Suicidal ideation and escalating drug use. Psy Discharge Primary Diag: Major Depressive d/o. Psy Discharge Secondary Diag: Opiate use d/o; r/o unspecified anxiety d/o. Hospital Course Significant Lab Findings: Lab Urine Cocaine Screen > 1000 NG/ML H 05/13/16 1850 Urine Opiates Screen > 4000.00 NG/ML H 05/13/16 1850 Course Complications: None. Consultations: Patient was seen for admission and history by Dr. Orourke. Please refer to his note for additional information. Allergies: Coded Allergies: Penicillins (Severe, ANAPHYLAXIS 05/13/16) Hospital Course/TX Response: The patient was monitored on the unit for safety, depression, anxiety, and suicidal ideation. He participated in multimodal treatments on the unit. He was medicated with methadone and clonidine taper to discontinuation for opiate withdrawal, hydroxyzine for anxiety and insomnia, gabapentin 4 times daily for anxiety. Today, the day of discharge, I met the patient for the first time. He stated, "I'm not suicidal. I used that ploy to get in. I have accomplished my goal of getting off heroin." The patient states he feels safe and ready for discharge. States that he is not suicidal, and lied about that in the emergency room, in the hope that he would be admitted. He was hoping to get help to stop taking heroin. He reports that his employer called him, to tell him that he if he did not come to work today by 2:00 PM, that he would be fired. Patient further states that he is feeling well , is prescribed Suboxone at the [email or web address]. He intends to start taking Suboxone immediately upon return to home this morning. He has intentionally not taken methadone since yesterday morning. We discussed the possible effects of restarting Suboxone, including the effects of the naloxone given his recent methadone use. Patient verbalizes understanding. States that he has a walk-in appointment scheduled for today at the [email or web address], which he intends to attend prior to going to work this afternoon. "Once I take my Suboxone, I'll be okay. I'm not having any cravings." Depression:0/10; Anxiety:3/10 (with 10 the worst.) Denies suicidal ideation, homicidal ideation, auditory hallucinations, visual hallucinations, paranoid ideation. States that he sleeps well at night, after taking Benadryl. States his appetite is good. Speech is well articulated, goal-directed, average in rate, volume and tone. The patient understands the risks/benefits/side effects of the medication and is agreeable to continue taking them. Patient will follow-up at [facility], where he states he is currently in Suboxone treatment. He has declined to sign disclosure wavers permitting us to communicate with his medical providers. Patient reports tolerating his medications well, without complaint. States he feels safe and ready for discharge. Discharge HBIPS - Tobacco Use Treatment Offered Post DC Medications Offered: Script Given-See Med List Post DC Tobacco Treatment Plan: [facility] Program Appt Date: 05/26/16 Program Appt Time: 1600 - EtOH/Drug Use D/O Treatment Offered Post DC Medications Offered: Script Given-See Med List Post DC EtOH/SubAbuse TX Plan: Other SubAbuse/Dual Pgm ([facility]) Program Appt Date: 05/17/16 Program Appt Time: 0100 Metabolic Screening - Screen if on a Neuroleptic Medication - Metabolic screening should include: - Blood Pressure, BMI, Glucose or Hgb A1c, & a - Lipid profile from within the past 365 days. Metabolic Screening (x) Not Applicable, patient not on a neuroleptic. OR () Patient on a neuroleptic(s) . Enter below results for Glucose or Hemoglobin A1C, and lipid panel if obtained during the last 365 days. BMI: Blood Pressure: 128/80 Laboratory Results (If applicable): Discharge Instructions General Discharge Information Discharge Medications: Discharge Medications- (Dose, route, freq, indication): HOME MEDICATION LIST START taking these NEW Home Medications: Nicotine Dose: ORAL, EVERY 2 HOURS Qty: 30 None to (Nicorelief) 2 MG 2 Milligram NEEDED as needed for Refills: 0 Pharm 1 GUM smoking cessation Last Taken:NOT DURING HOSPITALIZATION Time: CONTINUE taking these Home Medications: Gabapentin (Gabapentin) Dose: ORAL, 4 TIMES A DAY for 300 MG CAPSULE 1 Capsule ANXIETY/NERVE PAIN 04/16 LAST DOES 0800 PER PT Bupropion HCl Dose: ORAL, DAILY for MENTAL (Wellbutrin XL) 300 MG 1 Tablet HEALTH TAB.ER.24H Last Taken:NOT GIVEN WILL RESTART AT HOME Time: Continue Suboxone as prescribed at [facility] 1: [facility] [id number], [address], [place] [phone] Your Preferred Pharmacy [facility] [address] [address] [place], [place] [phone] Multiple Neuroleptics: (x) Not Applicable OR Document below three failed attempts at monotherapy, or a plan to taper to monotherapy, or augmentation of Clozapine. () Patient's Diet: Regular Patient's Activity: No restrictions. DC Disposition: Patient is returning to his home, and back to work. Recommendations: Follow up at [facility] for treatment including Suboxone. Maintain Sobriety. Attend AA. Referred To: [facility], [place] Walk in today after discharge. Follow-up with your clinician today and schedule an appointment with Dr. Saini. Copies To: *
--- NOTE | 2016-05-17 10:40 | SOCIAL WORKER PROG NOTE PSYCH ---
Social Work Progress Note Progress Note Patient had signed a 3 day termination of his voluntary status form on Tuesday at 10:30a. Donny initiated discussion this morning with the TRANSPORTATION DESIGN ENGINEER advocating to leave the hospital. Discussed request in team meeting and decided it would be safe to discharge him today. Patient denies suicidality and stated that he said this just to get into the hospital, so that he can stay away from heroin. Donny typically takes Suboxone, but wasn't taking it during a recent relapse. States he has been filling it, but not taking it as prescribed. He goes to [facility] for [facility]. Donny reports that he has to be at his job today at 2:30pm or he will be fired. He also will need to get to [facility] in [place] to see his clinician prior to going to work. Reports that he goes there every Tuesday before work. Patient refuses to sign a release for [facility], stating that he wants to tell them in person why he was in the hospital. He is afraid that he will lose the Suboxone program. Talked about the importance of letting his aftercare providers know what is going on with him. This was discussed with Patrice Brown APRN present. Donny still refuses to sign, stating that he will sign a release when he gets to [facility] if they want his records. Discussed importance of being active in AA/ NA. He reports having a sponsor, but this sponsor has only been clean for about a year. Encouraged daily meetings before or after work. Donny's car is here and he will plan to leave and get to [facility] right after discharge. Clinican will have to schedule his appt. with the psychiatrist.
--- NOTE | 2016-05-17 10:48 | NUR ---
Discharge Assessment Patient to be discharged to with f/u at [facility]. Patient denies SI, future oriented, focused on returning to work and relapse prevention. Patient to restart Suboxone as outpatient.
== END 2016-05-17 11:12 | DRG 754 ==
LOC: ENRESERVTM → ENRESERVDT → ERH 17:40 → CP SOUTH 05-14 09:25 → ENPENDDIS 05-14 09:25 → ERHI 05-14 09:25 → CP SOUTH 05-14 17:37
PROVIDERS: Emergency Medicine; ADMIT Psychiatry & Neurology Psychiatry
DX: F32.9 Major depressive disorder, single episode, unspecified (principal); F11.90 Opioid use, unspecified, uncomplicated; F41.9 Anxiety disorder, unspecified
CPT/HCPCS: 80307; 93005; 93010; G0463; G0480; J3101

== ENCOUNTER 2016-07-28 01:06 | Emergency (ER) | payer OTHER ==
[~2016-07-28] VITALS: Ht 170.2 cm; Wt 81.6 kg
[~2016-07-28 01:06] MED LIST: BUPROPION XL150 MG PO; BUPROPION XL300 M1 PO; GABAPENTIN300 M2 PO; NICORELIEF2 MG PO; SUBOXONE 8 MG-1 EACH SL; WELLBUTRIN XL300 M2 PO
[2016-07-28] MEDS ORDERED: SUBOXONE 8 MG-1 EACH (01:20)
--- NOTE | 2016-07-28 01:21 | ED PSYCHIATRIC COMPLAINT ---
History of Present Illness General Chief Complaint: Psychiatric Related Complaint Stated Complaint: " I DON'T FEEL STABLE,+SI THOUGHTS" Source: patient, family, old records Exam Limitations: no limitations Vital Signs & Intake/Output Vital Signs & Intake/Output Vital Signs Date Time Temp Pulse Resp B/P B/P Pulse O2 O2 Flow FiO2 Mean Ox Delivery Rate 07/28 1044 96.6 70 18 102/59 96 07/28 0629 96.5 78 18 116/76 97 Room Air 07/28 0113 97.2 98 16 135/92 97 Room Air Allergies Coded Allergies: Penicillins (Severe, ANAPHYLAXIS 05/13/16) Reconcile Medications Buprenorphine HCl/Naloxone HCl (Suboxone 8 MG-2 MG Sl Film) 8 MG-2 MG FILM OPION DEPENDENCE (Reported) Bupropion HCl (Wellbutrin XL) 300 MG TAB.ER.24H 1 TAB PO DAILY MENTAL HEALTH (Reported) Gabapentin 300 MG CAPSULE 1 CAP PO 4 TIMES/DAY ANXIETY/NERVE PAIN (Reported) 04/16 LAST DOES 0800 Nicotine (Nicorelief) 2 MG GUM 2 MG PO Q2P PRN smoking cessation Triage Note: PT TO ED FOR +SI THOUGHTS X2 DAYS, WORSE TODAY. "I WOULD PROBABLY OVERDOSE ON HEROIN IF I WAS GOING TO DO IT." DENIES PREVIOUS SI ATTEMPT. REPORTS HEROIN AND COCAINE USE "BUT I'VE BEEN CLEAN FOR 3 DAYS." CALM AND COOPERATIVE IN TRIAGE. Triage Nurses Notes Reviewed? yes HPI: Patient presents with increasing suicidal ideations with plans to overdose. Patient denies any homicidal ideations. Patient states that event in his life for just getting out of control and he does not know what else to do. Patient denies any hallucinations. There is no nausea or vomiting. Symptoms have been worsening over the past 2 days. (DAO TAYLOR,ULISSES Blanchard) Past History Travel History Traveled to [place] past 21 day No Medical History Any Pertinent Medical History? 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 Hx Contributory? No (DAO TAYLOR,ULISSES Blanchard) Review of Systems Review of Systems Constitutional: Reports: no symptoms. EENTM: Reports: no symptoms. Respiratory: Reports: no symptoms. Cardiovascular: Reports: no symptoms. GI: Reports: no symptoms. Genitourinary: Reports: no symptoms. Musculoskeletal: Reports: no symptoms. Skin: Reports: no symptoms. Neurological/Psychological: Reports: see HPI, depressed. Hematologic/Endocrine: Reports: no symptoms. Immunologic/Allergic: Reports: no symptoms. All Other Systems: Reviewed and Negative (DAO TAYLOR,ULISSES Blanchard) Physical Exam Physical Exam General Appearance: well developed/nourished, mild distress Head: atraumatic Eyes: Bilateral: PERRL, EOMI. Ears, Nose, Throat: normal pharynx, normal ENT inspection, hearing grossly normal Neck: normal inspection, supple Respiratory: normal breath sounds Cardiovascular: regular rate/rhythm Gastrointestinal: soft, non-tender Extremities: normal range of motion Neurological/Psychiatric: no motor/sensory deficits, awake, alert, calm, oriented x 3 Appearance/Memory/Insight: appropriate appearance, appropriate insight Behavoir/Eye Contact/Speech: cooperative, normal speech, good eye contact Thoughts/Hallucinations: normal thought pattern, no apparent hallucination Skin: intact, normal color, warm/dry SAD PERSONS Done? CRISIS CONSULT OBTAINED (DAO TAYLOR,ULISSES Blanchard) Progress Differential Diagnosis: drug intoxication, drug overdose, drug withdrawal, electrolyte abnormality Plan of Care: Orders Procedure Date/time Status Regular Diet 07/28 B Active Continuous Observation Monitor 07/28 1900 Active Continuous Observation Monitor 07/28 1500 Active Continuous Observation Monitor 07/28 1100 Active Continuous Observation Monitor 07/28 0700 Active Continuous Observation Monitor 07/28 0120 Active URINE DRUGS OF ABUSE 07/28 012 Complete ETHANOL 07/28 0120 Complete COMPREHENSIVE METABOLIC PANEL 07/28 012 Complete CBC WITHOUT DIFFERENTIAL 07/28 012 Complete ED CRISIS PSYCH CONSULT 07/28 012 Active Current Medications Sig/Martín Start time Last Medication Dose Stop Time Status Admin Bupropion HCl 300 MG QPM 07/28 2200 UNVr (Wellbutrin XL) Gabapentin 600 MG TID 07/28 1600 UNVr (Neurontin) Laboratory Tests 07/28/16 0305: Urine Opiates Screen 3165.00 H, Methadone Screen 53, Barbiturate Screen < 60, Ur Phencyclidine Scrn < 6.00, Amphetamines Screen 225, U Benzodiazepines Scrn < 85, Urine Cocaine Screen > 1000 H, Urine Cannabis Screen < 5.00 07/28/16 0135: Anion Gap 14, Estimated GFR > 60, BUN/Creatinine Ratio 16.4, Glucose 112 H, Calcium 9.9, Total Bilirubin 0.5, AST 19, ALT 38, Alkaline Phosphatase 67, Total Protein 7.3, Albumin 4.4, Globulin 2.9, Albumin/Globulin Ratio 1.5, CBC w Diff MAN DIFF ORDERED, RBC 5.37, MCV 88.8, MCH 30.5, RDW 12.2, MPV 8.6, Gran % 84.4 H, Lymphocytes % 13.5 L, Monocytes % 1.0 L, Eosinophils % 1.0, Basophils % 0.1 , Absolute Granulocytes 13.6 H, Segmented Neutrophils 82 H, Absolute Lymphocytes 2.2, Lymphocytes 15 L, Monocytes 2, Absolute Monocytes 0.2, Eosinophils 1, Absolute Eosinophils 0.2, Absolute Basophils 0, Platelet Estimate ADEQUATE, Normocytic RBCs VERIFIED, Normochromic RBCs VERIFIED, PUBS MCHC 34.4, Fld Total RBCs Counted 100, Serum Alcohol < 10.0 Hand-Off Endorsed To: GUY MAYFIELD MD Endorsed Time: 0700 Pending: consult (DAO TAYLOR,ULISSES Blanchard) Comments: Accepted for hospitalization at [facility] service of Dr. Combs. (GUY MAYFIELD MD) Departure Departure Condition: Stable Clinical Impression Primary Impression: Suicidal ideations Referrals: PATIENT HAS NO PRIMARY CARE DR (PCP/Family) Departure Forms: Customer Survey General Discharge Information (DAO TAYLOR,ULISSES Blanchard) Departure Time of Disposition: 1150 Disposition: OTHER PYSCH (GUY MAYFIELD MD)
[2016-07-28 01:49] LABS: ABSOLUTE BASOPHIL COUNT 0 /CUMM (0.0-0.2); BASOPHIL % 0.1 % (0.0-2.0); MEAN CORPUSCULAR VOLUME 88.8 FL (80.0-94.0)
[2016-07-28 01:53] LABS: ABSOLUTE EOSINOPHIL COUNT 0.2 /CUMM (0.0-0.7); ABSOLUTE GRANULOCYTE CT 13.6 /CUMM (1.4-6.5); ABSOLUTE LYMPH COUNT 2.2 /CUMM (1.2-3.4); ABSOLUTE MONOCYTE COUNT 0.2 /CUMM (0.10-0.60); GRANULOCYTE % 84.4 % (42.2-75.2); HEMATOCRIT 47.6 % (42-52); MEAN CORPUSCULAR HGB 30.5 PG (27.0-31.0); MEAN CORPUSCULAR HGB CONC 34.4 G/DL (33.0-37.0); MEAN PLATELET VOLUME 8.6 FL (7.4-10.4); PLATELET COUNT 246 /CUMM (130-400); RBC DISTRIBUTION WIDTH 12.2 % (11.5-14.5); RED BLOOD CELL CT 5.37 /CUMM (4.70-6.10); WHITE BLOOD CELL COUNT 16.1 /CUMM (4.8-10.8)
--- NOTE | 2016-07-28 08:00 | ED PSYCH CRISIS CONSULTATION ---
See Addendum Crisis Consult Basic Assessment Date of Consult: 07/28/16 Responsible Person/Accompanied By: Brought in by girlfriend Insurance Authorization: Insurance #1: Insurance name: ANNA CARNES Phone number: Policy number: [id number] Group number: Authorization number: ED Provider: Patient's ED Provider: GUY MAYFIELD MD Primary Care Physician: Patient's PCP: PATIENT HAS NO PRIMARY CARE DR PCP's Phone Number: Current Psychiatrist: Was going to [facility], however stopped going. Chief Complaint: Psychiatric Related Complaint Patient's Quote: " I haven't taken my medications" Present Illness: The patient is a 46 year old, single, male self-presenting to the ED with increased symptoms of depression and suicidal ideations, with a plan to OD. He reports treatment and medication (Wellbutrin and Gabapentin) non-compliance x1 week and subsequently an increase in symptoms. He is not able to identify a reason for missing his appointment and not refilling his medications. He states that he has been experiencing depressed mood, anhedonia, feeling helpless, feeling hopeless, with decreased energy, decreased concentration and sleep disturbances. He has a long history of mental health and substance abuse issues with subsequent treatment episodes. His last inpatient admission was when he was admitted to [facility] in Apr 2016 and his last rehab was in 2011. He reports that until 4 days ago, he was using Cocaine, Heroin and Xanax daily. He states that he decided to stop using, however is not able to articulate a reason and did not seek any formal treatment until now. He lives in a house, with his girlfriend and has no children. 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 He continues to report feeling suicidal, with a plan to overdose. He has had multiple episodes of feeling suicidal, however notes only one previous attempt, in 2009, in which he took an overdose of Heroin, Wellbutrin and drove his car [place] a [place]. He denies any current or history of AH / VH / HI. He denies any history of trauma or abuse. He believes that an inpatient admission would be helpful at this time. spoke to his girlfriend Lanette Behzad ([phone]), for collateral information. Lanette states that the patient relapsed on substances and then stopped his medications. Lanette notes that he has been increasingly depressed and has not gotten out of the bed for the last two days. She notes that she is concerned for his safety and believes that he will kill himself. She believes that he will need to be admitted for safety and symptoms stability. Patient's Address: [address] [place] [address] Other Phone Number: Who Do You Live With? Significant Other Family/Informants Interviewed: Girlfriend of 3 years- Lanette Wen ). Allergies - Coded Allergies: Penicillins (Severe, ANAPHYLAXIS 05/13/16) Current Medications - Scheduled Medications Bupropion HCl (Wellbutrin XL) 300 MG TAB.ER.24H 1 TAB PO DAILY MENTAL HEALTH (Reported) Entered as Reported by PHIL GARCIA on 05/14/162222 Last Taken: 07/27/16 Gabapentin 300 MG CAPSULE 1 CAP PO 4 TIMES/DAY ANXIETY/NERVE PAIN #120 ( Reported) Entered as Reported by ZEESHAN LLOYD on 05/13/162055 Last Taken: 07/27/16 Scheduled PRN Medications Nicotine (Nicorelief) 2 MG GUM 2 MG PO Q2P PRN smoking cessation #30 GUM Prescribed by ANA CABRERA APRN on 05/17/16 Miscellaneous Medications Buprenorphine HCl/Naloxone HCl (Suboxone 8 MG-2 MG Sl Film) 8 MG-2 MG FILM OPION DEPENDENCE (Reported) Entered as Reported by DAYLIN HERNANDEZ on 07/28/16 0120 Laboratory Results: Laboratory Tests 07/28/16 0305: Urine Opiates Screen 3165.00 H, Methadone Screen 53, Barbiturate Screen < 60, Ur Phencyclidine Scrn < 6.00, Amphetamines Screen 225, U Benzodiazepines Scrn < 85, Urine Cocaine Screen > 1000 H, Urine Cannabis Screen < 5.00 07/28/16 0135: Anion Gap 14, Estimated GFR > 60, BUN/Creatinine Ratio 16.4, Glucose 112 H, Calcium 9.9, Total Bilirubin 0.5, AST 19, ALT 38, Alkaline Phosphatase 67, Total Protein 7.3, Albumin 4.4, Globulin 2.9, Albumin/Globulin Ratio 1.5, CBC w Diff MAN DIFF ORDERED, RBC 5.37, MCV 88.8, MCH 30.5, RDW 12.2, MPV 8.6, Gran % 84.4 H, Lymphocytes % 13.5 L, Monocytes % 1.0 L, Eosinophils % 1.0, Basophils % 0.1 , Absolute Granulocytes 13.6 H, Segmented Neutrophils 82 H, Absolute Lymphocytes 2.2, Lymphocytes 15 L, Monocytes 2, Absolute Monocytes 0.2, Eosinophils 1, Absolute Eosinophils 0.2, Absolute Basophils 0, Platelet Estimate ADEQUATE, Normocytic RBCs VERIFIED, Normochromic RBCs VERIFIED, PUBS MCHC 34.4, Fld Total RBCs Counted 100, Serum Alcohol < 10.0 Past History Past Medical History Neurological: NONE EENT: NONE Cardiovascular: NONE Respiratory: NONE Gastrointestinal: NONE Hepatic: NONE Renal: nephrolithiasis Musculoskeletal: NONE Psychiatric: anxiety, depression, IV drug abuse, opioid dependence, substance abuse Endocrine: NONE Blood Disorders: NONE Cancer(s): NONE 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 Physical Limitations (Interventions): None reported or indicated Psychiatric Treatment History Psych Treatment Psychiatric Treatment Yes Inpatient Treatment Yes Outpatient Treatment Yes [facility] Reason for Treatment Depression and suicidal ideations Dates of Treatment Multiple dates- last IP was at [facility] Apr 2016 and Current with [facility] Response to Treatment The patient has had periods where he was doing well. Diagnosis by History: Depression, opioid use disorder Substance Use/Abuse History Drug Use/Abuse 1 Substances Used/Abused Yes Substance Used/Abused Benzodiazepines First Use Unclear Last Used "3 days ago" How much used/taken "a couple pills" How often Daily For how long 2 months Route of use Unknown Drug Use/Abuse 2 Substances Used/Abused Yes Substance Used/Abused Heroin First Use 30 years old Last Used "4 days ago" How much used/taken "30 bags" How often Daily For how long 2 month episode Route of use Unknown Drug Use/Abuse 3 Substances Used/Abused Yes Substance Used/Abused Cocaine First Use 17 years old Last Used 3 days How much used/taken $50 a day How often daily For how long 2 month episode Route of use Unclear Substance Abuse Treatment Substance Abuse Treatment Past Substance Abuse TX Yes Inpatient Treatment Yes Outpatient Treatment Yes Location of Treatment [facility], [facility], [facility], [place], [facility] Reason for Treatment Opioids, Cocaine and Benzo abuse. Dates of Treatment Multiple dates, current with [facility] for Suboxone and last rehab 2011 Response to Treatment The patient has had periods of sobriety. Comments: N/A Current Mental Status Mental Status Orientation: Person, Place, Situation Affect: Depressed, Flat Speech: WNL Neuro-vegetative: Anhedonia, Appetite Decreased, Concentration Poor, Energy Decreased, Helpless, Sleep Disturbance Appearance Appearance- Dress/Hygiene: The patient was neat, clean and well kempt sitting in a chair with minimal eye contact. Behaviors Thought Process: WNL Thought Content: WNL Memory: WNL Insight: WNL SI/HI Risk Assessment Past Suicidal Ideation/Attempts Yes (1 previous attempt) Current Suicidal Ideation/Att Yes Past Homicidal Ideation/Att: No Current Homicidal Ideation/Attempts No Degree of Intent: The patient states that he has been having suicidal thoughts with a plan to overdose. Danger To: Self Gravely Disabled: Poor Impulse Control Risk Factors: high anxiety/distress, history of suicide atmpts, SA/MH hospitalized, substance abuse, male, limited support Lethality Ratin PTSD Checklist PTSD Done? patient declined (Denies trauma and abuse hx.) ED Management Sitter: Yes Restraints: No DSM5/PS Stressors/Medical Prob Diagnosis' (DSM 5, Stressors, Medical): F32.9 Unspecified Depressive Disorder F11.20 Opioid Use Disorder F14.20 Stimulant Use Disorder- Cocaine type F13.20 Sedative, hypnotic and anxiolytic abuse Medical: Unremarkable Stressors: Recent loss of job Current GAF: 25 Comments: N/A Departure Disposition Psych Medical Clearance Date: 07/28/16 Medically Cleared at: 0700 Time Started: 0715 Time Ended: 0800 Psychiatrist Consulted: Fernando TAYLOR,Edward Date Disposition Established: 07/28/16 Time Disposition Established: 08 Plan for Disposition - Modality: Inpatient Psychiatry Facility: [facility] vs. bed search depending on bed availability. Contact: N/A Telephone: N/A Rationale for Disposition: The patient presents with depressed mood, anhedonia, feeling helpless, feeling hopeless, with decreased energy, decreased concentration and sleep disturbances. He is having suicidal ideations with a plan to overdose. Case discussed with Dr. King and he finds the patient to be an acute risk to self and in need of an inpatient admission at this time. The patient will be held in the ED for bed search vs. admission to [facility]. Type of IP Admission: Voluntary Additional Instructions: N/A Referrals PATIENT HAS NO PRIMARY CARE DR (PCP/Family)
[2016-07-28 10:44] VITALS: BP 102/59
== END 2016-07-28 13:15 | disposition other institution (70) ==
LOC: ERH 01:06
PROVIDERS: Emergency Medicine
DX: R45.851 Suicidal ideations (principal)
CPT/HCPCS: 80307; G0463; G0480

== ENCOUNTER 2017-08-27 23:41 | Emergency (ER) | payer OTHER ==
[~2017-08-27] VITALS: Ht 170.2 cm; Wt 81.6 kg
[~2017-08-27 23:41] MED LIST changes: +SUBOXONE 8 MG-1 EACH
--- NOTE | 2017-08-27 23:57 | ED PSYCHIATRIC COMPLAINT ---
See Addendum History of Present Illness General Chief Complaint: Psychiatric Related Complaint Stated Complaint: STOP TAKING PSYCH MEDS, WANTS HELP" Source: patient, old records Exam Limitations: no limitations Vital Signs & Intake/Output Vital Signs & Intake/Output Vital Signs Date Time Temp Pulse Resp B/P B/P Pulse O2 O2 Flow FiO2 Mean Ox Delivery Rate 08/28 2106 98.5 72 18 153/72 08/28 1851 98.5 72 18 153/72 98 Room Air 08/28 1457 97.7 66 18 119/73 98 Room Air 08/28 1303 98.1 70 18 120/72 98 Room Air 08/28 1101 97.9 78 18 127/74 98 Room Air 08/28 0856 98.1 74 18 123/72 98 Room Air 08/28 0615 97.2 78 18 118/65 95 Room Air 08/27 2353 98.7 90 20 127/91 98 Room Air ED Intake and Output 08/28 0000 08/27 1200 Intake Total Output Total Balance Patient 180 lb Weight Weight Reported by Patient Measurement Method Allergies Coded Allergies: Penicillins (Severe, ANAPHYLAXIS 05/13/16) Triage Nurses Notes Reviewed? yes HPI: Patient stopped his medications 2 weeks ago and relapsed on opiates and cocaine. Patient has been injecting them. Patient is now having suicidal thoughts. There is no plan. He denies any homicidal ideations. There is no hallucinations. He denies any delusions. (Richi TAYLOR,Marquis Blanchard) Reconcile Medications Buprenorphine HCl/Naloxone HCl (Suboxone 8 MG-2 MG Sl Film) (Unknown Strength) FILM (Unknown Dose) UNKNOWN (Reported) Bupropion HCl (Bupropion XL) 150 MG TAB.ER.24H 1 TAB PO DAILY ANXIETY/ DEPRESSION (Reported) Clonidine HCl 0.2 MG TABLET 1 TAB PO BID ANXIETY (Reported) Gabapentin 300 MG CAPSULE 3 CAP PO TID ANXIETY (Reported) (Tin TAYLOR,Tate) Past History Medical History Any Pertinent Medical History? 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 Hx Contributory? No (Richi TAYLOR,Marquis Blanchard) Review of Systems Review of Systems Constitutional: Reports: no symptoms. EENTM: Reports: no symptoms. Respiratory: Reports: no symptoms. Cardiovascular: Reports: no symptoms. GI: Reports: no symptoms. Genitourinary: Reports: no symptoms. Musculoskeletal: Reports: no symptoms. Skin: Reports: no symptoms. Neurological/Psychological: Reports: see HPI, depressed. Hematologic/Endocrine: Reports: no symptoms. Immunologic/Allergic: Reports: no symptoms. All Other Systems: Reviewed and Negative (Richi TAYLOR,Marquis Blanchard) Physical Exam Physical Exam General Appearance: well developed/nourished, mild distress Head: atraumatic Eyes: Bilateral: PERRL, EOMI. Ears, Nose, Throat: normal pharynx, normal ENT inspection, hearing grossly normal Neck: normal inspection, supple Respiratory: normal breath sounds, chest non-tender, no respiratory distress, lungs clear Cardiovascular: regular rate/rhythm, normal peripheral pulses Gastrointestinal: normal bowel sounds, soft, non-tender Extremities: normal range of motion Neurological/Psychiatric: no motor/sensory deficits, awake, alert, anxious, oriented x 3 Appearance/Memory/Insight: appropriate appearance, appropriate insight Behavoir/Eye Contact/Speech: cooperative, normal speech, good eye contact Thoughts/Hallucinations: normal thought pattern, no apparent hallucination Skin: intact, normal color, warm/dry SAD PERSONS Done? CRISIS CONSULT OBTAINED (Richi TAYLOR,Marquis Blanchard) Progress Differential Diagnosis: drug intoxication, drug overdose, drug withdrawal, electrolyte abnormality Plan of Care: Orders Procedure Date/time Status Regular Diet 08/28 B Active Continuous Observation Monitor 08/28 1900 Active Continuous Observation Monitor 08/28 1500 Active Continuous Observation Monitor 08/28 1100 Active Continuous Observation Monitor 08/28 0700 Active Add-on Test (ER Only) 08/28 0307 Active CULTURE,URINE 08/28 0052 Active Continuous Observation Monitor 05/26 2355 Active URINE DRUGS OF ABUSE 08/27 2354 Complete URINALYSIS 08/27 2354 Complete TROPONIN LEVEL 08/27 2354 Complete ETHANOL 08/27 2354 Complete COMPREHENSIVE METABOLIC PANEL 08/27 2354 Complete CBC WITHOUT DIFFERENTIAL 08/27 2354 Complete EKG 08/27 2354 Active ED CRISIS PSYCH CONSULT 08/27 2354 Active Current Medications Sig/Martín Start time Last Medication Dose Stop Time Status Admin Lorazepam 2 MG FOUR TIMES A DAY PRN 08/28 211 AC 08/28 (Ativan) 231 Bupropion HCl 300 MG QPM 08/28 2099 UNVr 08/28 (Wellbutrin XL) 231 Clonidine 0.2 MG QPM 08/28 2099 UNVr 08/28 (Catapres) 210 Clonidine 0.1 MG FOUR TIMES A DAY PRN 08/28 001 AC 08/28 (Catapres) 0629 Ibuprofen 600 MG Q6P PRN 08/28 001 AC (Motrin) Metoclopramide HCl 10 MG AC & AT BEDTIME PRN 08/28 001 AC (Reglan) Gabapentin 900 MG Q8 08/27 2353 UNVr 08/28 (Neurontin) 2105 Laboratory Tests 08/28/17 0052: Urine Opiates Screen > 4000.00 H, Methadone Screen 40, Barbiturate Screen < 60, Ur Phencyclidine Scrn < 6.00, Amphetamines Screen < 100, U Benzodiazepines Scrn < 85, Urine Cocaine Screen > 1000 H, Urine Cannabis Screen < 5.00, Urine Color YEL, Urine Clarity CLDY H, Urine pH 6.0, Ur Specific [place] >= 1.030, Urine Protein 100 H, Urine Ketones NEG, Urine Nitrite NEG, Urine Bilirubin NEG, Urine Urobilinogen 0.2, Ur Leukocyte Esterase MOD H, Ur Microscopic SEDIMENT EXAMINED , Urine RBC 1-3, Urine WBC > 75 H, Urine Crystals 1+ CA OX H, Urine Bacteria FEW H, Micro UA Comment BUDDING YEAST H, Urine Hemoglobin LARGE H, Urine Glucose NEG 08/28/17 0035: Anion Gap 14, Estimated GFR > 60, BUN/Creatinine Ratio 11.7, Glucose 96, Calcium 9.8, Total Bilirubin 0.4, AST 18, ALT 37, Alkaline Phosphatase 61, Troponin I < 0.01, Total Protein 6.9, Albumin 4.0, Globulin 2.9, Albumin/Globulin Ratio 1.4, CBC w Diff NO MAN DIFF REQ, RBC 5.24, MCV 89.1, MCH 30.5, MCHC 34.2, RDW 11.9, MPV 7.9, Gran % 72.7, Lymphocytes % 17.6 L, Monocytes % 8.2, Eosinophils % 1.2, Basophils % 0.3, Absolute Granulocytes 6.2, Absolute Lymphocytes 1.5, Absolute Monocytes 0.7 H, Absolute Eosinophils 0.1, Absolute Basophils 0, Serum Alcohol < 10.0 Microbiology 08/28 005 URINE ROUT: Urine Culture - RECD Initial ED EKG: NSR, no ST T wave changes Prior EKG: unchanged Hand-Off Endorsed To: Tate Castle MD Endorsed Time: 629 Pending: consult (CRISIS) (Marquis Stoddard MD) Hand-Off Endorsed To: Jerome Hayes MD Endorsed Time: 190 Pending: other (bed search) (Tate Castle MD) Hand-Off Endorsed To: Tate Castle MD Endorsed Time: 07 Pending: other (Jerome Hayes MD) Departure Departure Disposition: STILL A PATIENT Condition: Stable Clinical Impression Primary Impression: Suicidal ideation Referrals: Patient Has No Primary Care Dr (PCP/Family) Departure Forms: Customer Survey General Discharge Information (Marquis Stoddard MD)
[2017-08-28 00:52] LABS: ABSOLUTE BASOPHIL COUNT 0 /CUMM (0.0-0.2); ABSOLUTE EOSINOPHIL COUNT 0.1 /CUMM (0.0-0.7); ABSOLUTE GRANULOCYTE CT 6.2 /CUMM (1.4-6.5); ABSOLUTE LYMPH COUNT 1.5 /CUMM (1.2-3.4); ABSOLUTE MONOCYTE COUNT 0.7 /CUMM (0.10-0.60); BASOPHIL % 0.3 % (0.0-2.0); EOSINOPHIL % 1.2 % (0-5); GRANULOCYTE % 72.7 % (42.2-75.2); HEMATOCRIT 46.7 % (42-52); MEAN CORPUSCULAR HGB 30.5 PG (27.0-31.0); MEAN CORPUSCULAR HGB CONC 34.2 G/DL (33.0-37.0); MEAN CORPUSCULAR VOLUME 89.1 FL (80.0-94.0); MEAN PLATELET VOLUME 7.9 FL (7.4-10.4); PLATELET COUNT 218 /CUMM (130-400); RBC DISTRIBUTION WIDTH 11.9 % (11.5-14.5); RED BLOOD CELL CT 5.24 /CUMM (4.70-6.10); WHITE BLOOD CELL COUNT 8.5 /CUMM (4.8-10.8)
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
[2017-08-28] MEDS ORDERED: BUPROPION XL150 MG PO (13:52)
[2017-08-28] MEDS ORDERED: CLONIDINE HCL0.2 M1 PO (13:52)
[2017-08-28] MEDS ORDERED: GABAPENTIN300 M2 PO (13:52)
[2017-08-28] MEDS ORDERED: SUBOXONE 8 MG-1 EACH (13:53)
[2017-08-29 17:33] VITALS: BP 125/72
== END 2017-08-29 18:10 | disposition other institution (70) ==
LOC: ERH 23:41
PROVIDERS: Emergency Medicine
DX: R45.851 Suicidal ideations (principal); F11.10 Opioid abuse, uncomplicated; F14.10 Cocaine abuse, uncomplicated
CPT/HCPCS: 80307; 81001; 87086; 87088; 93005; 93010; G0463; G0480